=== PATIENT | male | born 1980 | race Two or more races ===

== ENCOUNTER 2017-01-10 14:51 | Emergency (ER) | payer SELFPAY ==
[~2017-01-10] VITALS: Ht 170.2 cm; Wt 87.5 kg
[2017-01-10 16:45] VITALS: BP 120/72
== END 2017-01-10 17:07 | disposition home or self-care (01) ==
LOC: ER 14:54
DX: J02.9 Acute pharyngitis, unspecified (principal); J20.9 Acute bronchitis, unspecified